=== PATIENT | male | born 1965 | race Caucasian/White ===

== ENCOUNTER 2017-03-13 22:41 | Emergency (ER) | payer OTHER ==
[~2017-03-13] VITALS: Ht 180.3 cm; Wt 81.6 kg
[2017-03-13] MEDS ORDERED: IV D5/ 0.9% NACL 1,000 ML IV ONE (22:49)
[2017-03-13] MEDS ORDERED: LORAZEPAM 2 MG/1 ML VIAL IV ONE (23:00)
[2017-03-13] MEDS ORDERED: LORAZEPAM 2 MG/1 ML VIAL ONE (23:10)
[2017-03-13 23:12] LABS: BASOPHILS # (AUTO) 0.1 K/uL (0.0-8.0); BASOPHILS % (AUTO) 1.5 % (0.0-2.0); EOSINOPHILS # (AUTO) 0.2 K/uL (0.0-0.7); EOSINOPHILS % (AUTO) 2.5 % (0.0-7.0); HEMATOCRIT 46.8 % (40-50); HEMOGLOBIN 15.4 G/DL (14.0-18.0); LYMPHOCYTES # (AUTO) 2.7 K/UL (0.8-4.8); MEAN CORPUSCULAR HEMOGLOBIN 26.5 UUG (27.0-31.0); MEAN CORPUSCULAR HGB CONC 33 g/dL (32.0-37.0); MEAN CORPUSCULAR VOLUME 80.5 FL (82.0-92.0); MONOCYTES # (AUTO) 0.7 K/UL (0.1-1.30); MONOCYTES % (AUTO) 7.6 % (0.0-11.0); NEUTROPHILS # (AUTO) 5.5 K/UL (1.8-8.9); NEUTROPHILS % (AUTO) 59.4 % (38.5-71.5); PLATELET COUNT (AUTO) 265 K/UL (150-450); RED BLOOD CELL COUNT(AUTO) 5.81 MIL/UL (4.7-6.1); WHITE BLOOD COUNT (AUTO) 9.2 K/UL (4.0-11.2)
[2017-03-13 23:25] LABS: BILIRUBIN,DIRECT 0.1 mg/dL (0.0-0.2); BILIRUBIN,TOTAL 0.4 mg/dL (0.2-1.0); POTASSIUM 3.2 mmol/L (3.5-5.1); TOTAL PROTEIN, SERUM 7.5 g/dL (6.4-8.2)
[2017-03-13] MEDS ORDERED: IV 0.9% SODIUM CHLORID+ 20 KCL 1,000 ML IV ONE (23:40)
--- NOTE | 2017-03-13 23:48 | NUR ---
PATIENT REFUSING TO STAY OR ANY TEST TO DONE AT THIS TIME. DR NULL INTO EVAL PATIENT
--- NOTE | 2017-03-13 23:55 | NUR ---
IV removed. Catheter intact and site benign. Pressure and 4x4 gauze applied to site. No bleeding noted.
[2017-03-13] MEDS ORDERED: IV 0.9% SODIUM CHLORID+ 20 KCL 0 ML ONE (23:56)
[2017-03-14] MEDS ORDERED: ZOLP5TAB8 PO (00:07)
[2017-03-14] MEDS ORDERED: LISI10TA5 PO (00:07)
[2017-03-14] MEDS ORDERED: MULT-182 PO (00:07)
[2017-03-14] MEDS ORDERED: PANT40TA2 PO (00:07)
[2017-03-14] MEDS ORDERED: NIFE30TA2 PO (00:07)
[2017-03-14] MEDS ORDERED: METO50TA3 PO (00:07)
[2017-03-14] MEDS ORDERED: TAMS-3 PO (00:07)
[2017-03-14] MEDS ORDERED: ACET-73 PO (00:07)
[2017-03-14] MEDS ORDERED: LORA0.5T PO ×2 (00:07)
[2017-03-14] MEDS ORDERED: ONDA4TAB5 PO (00:07)
[2017-03-14] MEDS ORDERED: HYDR-4076 PO (00:07)
[2017-03-14] MEDS ORDERED: ASCO500T10 PO (00:07)
[2017-03-14] MEDS ORDERED: AMIN30LI27 PO (00:07)
[2017-03-14] MEDS ORDERED: OLAN2.5T3 PO (00:07)
[2017-03-14] MEDS ORDERED: GUAI100S9 PO (00:07)
[2017-03-14] MEDS ORDERED: LACT-214 PO (00:07)
[2017-03-14] MEDS ORDERED: ENOX30DI SUBCUT (00:07)
[2017-03-14] MEDS ORDERED: DIVA500T2 PO (00:07)
[2017-03-14] MEDS ORDERED: TRAM50TA2 PO (00:07)
[2017-03-14] MEDS ORDERED: ALLO300T2 PO (00:07)
--- NOTE | 2017-03-14 00:09 | NUR ---
Patient discharged to home in stable conditon WITH [facility] TAKING PATIEBNT HOME. Written and verbal after care instructions given. Patient verbalizes understanding of instructions. WALKED OUT OF ER WITH STEADY GAIT
[2017-03-14 00:12] VITALS: BP 128/89
== END 2017-03-14 00:13 | disposition home or self-care (01) ==
LOC: ER 22:43
DX: E86.0 Dehydration (principal); F10.129 Alcohol abuse with intoxication, unspecified; E87.6 Hypokalemia; F41.9 Anxiety disorder, unspecified; E78.00 Pure hypercholesterolemia, unspecified; Z79.899 Other long term (current) drug therapy
CPT/HCPCS: 36415; 70030-TC; 71010; 83690; 85025; 93005; A4663; G0480; J2060; J7042